=== PATIENT | male | born 1975 | race Hispanic/Latino ===

== ENCOUNTER 2017-10-27 15:10 | Emergency (ER) | payer OTHER ==
[~2017-10-27] VITALS: Ht 180.3 cm; Wt 163.2 kg
[~2017-10-27 15:10] MED LIST: FLEXERIL10 MG PO; NAPROSYN500 MG PO
[2017-10-27] MEDS ORDERED: FLEXERIL10 MG PO (16:56)
[2017-10-27] MEDS ORDERED: MOTRIN800 MG PO (16:56)
[2017-10-27 17:16] VITALS: BP 136/86
== END 2017-10-27 17:33 | disposition home or self-care (01) ==
LOC: EME 15:10
DX: S86.812A Strain of other muscle(s) and tendon(s) at lower leg level, left leg, initial encounter (principal); M25.462 Effusion, left knee; M62.838 Other muscle spasm; X50.1XXA Overexertion from prolonged static or awkward postures, initial encounter; J45.909 Unspecified asthma, uncomplicated; E78.5 Hyperlipidemia, unspecified; I10 Essential (primary) hypertension; Z88.2 Allergy status to sulfonamides; Z88.0 Allergy status to penicillin
CPT/HCPCS: 76882; 99281; 99284